=== PATIENT | female | born 1980 | race African-American/Black ===

== ENCOUNTER 2017-12-12 05:02 | Inpatient (IN) | payer OTHER ==
[2017-12-06 15:30] VITALS: BMI 36.3
[~2017-12-12 05:02] MED LIST: BUPIVACAINE HCL/PF (5 MG/ML) 30 ML VIAL IJ ONE; ceFAZolin 2 GRAM PREMIX BAG IVPB ONE
[2017-12-12] MEDS ORDERED: PROPOFOL 20 ML ONE (14:58)
[2017-12-12] MEDS ORDERED: DEXAMETHASONE SOD PHOSPHATE 4 MG/1 ML VIAL ONE (14:58)
[2017-12-12] MEDS ORDERED: fentaNYL CITRATE 250 MCG/5 ML VIAL ONE (14:58)
[2017-12-12] MEDS ORDERED: LIDOCAINE HCL/PF 2% SDV 5ML VIAL ONE (14:58)
[2017-12-12] MEDS ORDERED: ROCURONIUM BROMIDE 50 MG/5 ML VIAL ONE (14:58)
--- NOTE | 2017-12-12 15:47 | HP ---
Admitting History and Physical - Admission Chief Complaint: Morbid obesity History Source: Patient Limitations to Obtaining History: No Limitations - Past Medical History Pulmonary: Yes: Sleep Apnea ...LMP: 11/25/17 - Smoking History Smoking history: Former smoker Have you smoked in the past 12 months: No - Alcohol/Substance Use Hx Alcohol Use: Yes (SOCIALLY) Home Medications - Allergies Allergies/Adverse Reactions: Allergies Allergy/AdvReac Type Severity Reaction Status Date / Time No Known Drug Allergies Allergy Verified 12/06/17 15:24 - Home Medications Home Medications: Ambulatory Orders Famotidine [Pepcid] 20 mg PO BID #60 tablet 12/12/17 Oxycodone HCl/Acetaminophen [Percocet 5-325 mg Tablet] 1 - 2 tab PO Q6H #28 tab MDD 4 12/12/17 Family Disease History - Family Disease History Family History: Denies Review of Systems - Review of Systems Constitutional: denies: Chills, Fever HENT: reports: No Symptoms Neck: reports: No Symptoms Cardiovascular: reports: No Symptoms Respiratory: reports: No Symptoms Gastrointestinal: reports: No Symptoms Neurological: reports: No Symptoms Pain Intensity: 0 Physical Examination Vital Signs: Vital Signs Temperature 97.8 F 12/12/17 12:09 Pulse Rate 80 12/12/17 12:09 Respiratory Rate 18 12/12/17 12:09 Blood Pressure 139/92 12/12/17 12:09 O2 Sat by Pulse Oximetry (%) 100 12/12/17 12:25 Constitutional: Yes: Calm HENT: Yes: WNL Neck: Yes: WNL Cardiovascular: Yes: WNL Respiratory: Yes: Regular Gastrointestinal: Yes: Soft, Abdomen, Obese Neurological: Yes: Alert, Oriented Problem List - Problems (1) Morbid obesity due to excess calories Code(s): E66.01 - MORBID (SEVERE) OBESITY DUE TO EXCESS CALORIES Assessment/Plan Laparoscopic possible open vertical sleeve gastrectomy, possible liver biopsy, EGD
[2017-12-12] MEDS ORDERED: MIDAZOLAM HCL 2 MG/2 ML SINGLE DOSE VIAL ONE (16:12)
[2017-12-12] MEDS ORDERED: BUPIVACAINE HCL/PF (5 MG/ML) 30 ML VIAL IJ ONE (16:29)
[2017-12-12] MEDS ORDERED: ceFAZolin SODIUM 1 GM VIAL ONE (16:34)
[2017-12-12] MEDS ORDERED: LABETALOL HCL 5 MG/1 ML (100MG/20 ML VIAL) ONE (17:13)
[2017-12-12] MEDS ORDERED: PROMETHAZINE HCL 25 MG/1 ML VIAL IVPB PRN (17:34)
[2017-12-12] MEDS ORDERED: ONDANSETRON 4 MG/2 ML VIAL IVPUSH PRN (17:34)
[2017-12-12] MEDS ORDERED: LACTATED RINGERS SOLUTION 1,000 ML IV SCH (17:45)
[2017-12-12] MEDS ORDERED: morphine SULFATE 4 MG/ML VIAL IVPUSH PRN (17:54)
--- NOTE | 2017-12-12 17:57 | OP ---
Operative Note - Note: Operative Date: 12/12/17 Pre-Operative Diagnosis: morbid obesity, obstructive sleep apnea Operation: Laparoscopic vertical sleeve gastrectomy, wedge liver biopsy, EGD Post-Operative Diagnosis: Other (morbid obesity, obstructive sleep apnea, heaptomegaly) Surgeon: Jasper Casas Pharmacy Associate: Yady Staley Anesthesia: General Specimens Removed: Greater curvature of the stomach. Liver biopsy Estimated Blood Loss (mls): 30 Drains & Tubes with Location: 36 Fr bougie Operative Report Dictated: Yes
[2017-12-12] MEDS ORDERED: SODIUM CHLORIDE 1,000 ML IV SCH (18:00)
[2017-12-12] MEDS: ACETAMINOPHEN 1000 MG/100 ML VIAL (NON FORMULARY) IVPB SCH (18:00)
[2017-12-12] MEDS: METOCLOPRAMIDE HCL INJECTION 10 MG/2 ML VIAL IVPUSH SCH (18:00)
[2017-12-12] MEDS: ONDANSETRON 4 MG/2 ML VIAL IVPUSH SCH ×2 (18:00→21:16)
[2017-12-12] MEDS ORDERED: ceFAZolin 2 GRAM PREMIX BAG IVPB ONE (18:13)
--- NOTE | 2017-12-12 18:16 | SURG ---
Surgery Can Reforming Machine Operator Note Can Reforming Machine Operator: Yady Staley PA-C Date of Service: 12/12/17 Diagnosis: morbid obesity Procedure: laparoscopic sleeve gastrectomy I was present for the entirety of the operative procedure. For further detail, please refer to operative report. Visit type - Case Type Case Type: Scheduled - Emergency Emergency Visit: No - New patient This patient is new to me today: Yes Date on this admission: 12/12/17
[2017-12-12] MEDS ORDERED: ONDANSETRON 4 MG/2 ML VIAL ONE (18:19)
[2017-12-12] MEDS ORDERED: METOCLOPRAMIDE HCL INJECTION 10 MG/2 ML VIAL ONE (18:19)
[2017-12-12] MEDS ORDERED: hydrALAZINE HCL 20 MG/ML VIAL ONE (18:30)
[2017-12-12] MEDS: hydrALAZINE HCL 20 MG/ML VIAL IVPUSH ONE ×2 (18:40→20:38)
[2017-12-12 19:03] LABS: HEMOGLOBIN 12.5 GM/dL (10.7-15.3); MEAN CELL VOLUME 84.4 fl (80-96); MEAN PLT VOLUME 9.1 fl (7.5-11.1); PLATELET COUNT 295 K/MM3 (134-434); RBC 4.62 M/mm3 (3.60-5.2); RDW 14.2 % (11.6-15.6); WHITE BLOOD COUNT 17.1 K/mm3 (4.0-10.0)
--- NOTE | 2017-12-12 19:17 | SPEC ---
DATE OF OPERATION: 12/12/2017 SURGEON: Jasper Casas M.D. RECEIVING OPERATOR: Ruby Mott PREOPERATIVE DIAGNOSIS: 1. Morbid obesity. 2. Obstructive sleep apnea. 3. Body mass index of 36.3. POSTOPERATIVE DIAGNOSIS: 1. Morbid obesity. 2. Obstructive sleep apnea. 3. Body mass index of 36.3. 4. Hepatomegaly. PROCEDURES: 1. Laparoscopic vertical sleeve gastrectomy. 2. Laparoscopic wedge liver biopsy. 3. Esophagogastroduodenoscopy/upper endoscopy. SPECIMENS: 1. Greater curvature of the stomach. 2. Liver biopsy. ESTIMATED BLOOD LOSS: 30 mL. DRAINS: None. ANESTHESIA: GET BOUGIE SIZE: 36 [place] REASON FOR PROCEDURE: This is a 36-year-old female who presented for weight loss options. After describing different options, she decided to proceed with a laparoscopic, possible open vertical sleeve gastrectomy, possible liver biopsy and upper endoscopy. RISKS AND BENEFITS: After describing the different options for weight loss management, the patient decided to proceed with a laparoscopic, possible open vertical sleeve gastrectomy. The patient was seen by the respective subspecialties and cleared for surgery. The risks and benefits of the procedure were explained. These included bleeding, infection, hernia, DE, DVT, PE, injury to surrounding structures including the liver, colon, bowel, spleen, esophagus, vessel injury, nerve injury, weight regain, gastric leak, staple line leak, sleeve leak, obstruction, vitamin deficiency, hair loss and as some of the possible complications. The patient understood and signed informed consent. DESCRIPTION OF PROCEDURE: The patient was placed supine on the operating room table. The patient underwent general endotracheal intubation. The arms were brought out at 90 degrees and secured. A footboard was placed and the legs were secured laterally with padding. The abdomen was prepped and draped in the usual sterile fashion. A timeout was performed. An incision was made in the left upper quadrant and a Veress needle inserted. Pneumoperitoneum was established. Subsequently, the Veress needle was removed and a 5-mm trocar was placed under direct visualization with the laparoscope. The laparoscopic camera was then inserted and inspection of the abdominal cavity was performed. An incision was then made in the supraumbilical area and a 15-mm trocar was placed under direct visualization. A 5-mm trocar was then placed in the right upper quadrant and a 5-mm trocar was placed below the left subcostal margin. A stab wound was made in the subxiphoid area and a Fern clamp inserted and removed to dilate the tract. A Ayush liver retractor was inserted. The post was secured at the bedside by the nursing staff. The patient was placed in steep reverse Trendelenburg position and the Ayush liver retractor was used to secure the liver towards the anterior abdominal wall. The pylorus was identified and 6 cm proximal to it, the lesser sac was entered using the LigaSure device. All lateral attachments to the greater curvature of the stomach, including the short gastric vessels, were ligated using the LigaSure device toward the gastrosplenic and gastrophrenic ligaments. Once this was done in its entirety, it was confirmed that all tubes within the nasal or oropharyngeal cavity, including a temperature probe, was removed by Anesthesia. The bougie was then inserted by Anesthesia. Transection of the stomach was then begun staying adjacent to the bougie but away from the angularis. Transection of the stomach was performed near the portion of the stomach where the lesser sac was entered. Two laparoscopic Endo-LEXIE black rivas were used at this location. Laparoscopic Endo LEXIE purple staple loads were then used for the remainder of the transection until the greater curvature of the stomach was fully transected. This was done staying close to the bougie. Care was taken to stay away from the angle of His cephalad. The staple line was then inspected. Hemostasis was identified. A leak test was then performed. It was clamped distally to the staple line. Irrigation solution was placed in the left upper quadrant and air was insufflated by Anesthesia into the sleeve. No leaks were identified. No obstruction was identified. This was done through the entirety of the staple line. In addition, an upper endoscopy was performed. The endoscope was placed into the patients mouth and the entirety of the esophagus, GE junction, gastric pouch and staple line were inspected. No obstruction or leak was noted. The stomach was suctioned and the endoscope removed fully intact. At this point, the irrigation solution was suctioned and again, hemostasis was noted. A wedge liver biopsy was then performed. The left lobe of the liver was identified and a portion of the edge was grasped. Using electrocautery, a wedge of the liver was excised. This was removed and sent off the field as specimen. Hemostasis at the site of the wedge liver biopsy was attained using electrocautery. The 15-mm supraumbilical trocar was then removed and the greater curvature specimen removed from the site using a sponge stick wong. The specimen was inspected and a Veress needle inserted. The specimen insufflated adequately and no leak was identified. The staple line was noted to be intact. A Erwin-Yanni device was then used to close the fascia with a 0 Vicryl suture at the site. Again, hemostasis was noted. The Ayush liver retractor was then removed under direct visualization. Pneumoperitoneum was desufflated and the fascial sutures were secured. Hemostasis was noted at all incision sites and Marcaine was injected at all incision sites. All incision sites were closed using 4-0 Biosyn. Sterile dressings were applied. The patient tolerated the procedure well and was transferred to the recovery room in stable condition. The patient was transferred to telemetry for further monitoring. Lakesha [id number]
[2017-12-12 19:49] LABS: ALBUMIN 3.5 g/dl (3.4-5.0); ALK PHOS 106 U/L (45-117); ANION GAP 9 MMOL/L (8-16); BILIRUBIN,TOTAL 0.4 mg/dL (0.2-1); BLOOD UREA NITROGEN 10 mg/dL (7-18); CALCIUM 8.1 mg/dL (8.5-10.1); CHLORIDE 107 mmol/L (98-107); CO2 24 mmol/L (21-32); CREATININE 0.9 mg/dL (0.55-1.3); GLUCOSE,RANDOM 120 mg/dL (74-106); POTASSIUM 4.2 mmol/L (3.5-5.1); SGOT/AST 25 U/L (15-37); SGPT/ALT 25 U/L (13-61); SODIUM 140 mmol/L (136-145); TOT PROT 7.6 g/dl (6.4-8.2)
[2017-12-12] MEDS: ENOXAPARIN NA (PORCINE) 40 MG/0.4 ML DISP.SYRIN SQ SCH (21:16)
[2017-12-12] MEDS: FAMOTIDINE 20 MG/50 ML IVPB 20 MG/50 ML MG IVPB SCH (21:16)
[2017-12-12] MEDS ORDERED: DEXAMETHASONE SOD PHOSPHATE 10 MG/1 ML VIAL ONE (22:11)
[2017-12-12] MEDS ORDERED: DEXAMETHASONE SOD PHOSPHATE 4 MG/1 ML VIAL IVPB ONE (22:30)
[2017-12-13] MEDS: METOCLOPRAMIDE HCL INJECTION 10 MG/2 ML VIAL IVPUSH SCH ×4 (00:10→18:08)
[2017-12-13] MEDS: ACETAMINOPHEN 1000 MG/100 ML VIAL (NON FORMULARY) IVPB SCH ×3 (00:10→11:19)
[2017-12-13] MEDS: ONDANSETRON 4 MG/2 ML VIAL IVPUSH SCH ×6 (01:28→21:23)
[2017-12-13 06:53] LABS: HEMATOCRIT 39.8 % (32.4-45.2); HEMOGLOBIN 12.8 GM/dL (10.7-15.3); MCH 26.8 pg (25.7-33.7); MCHC 32.2 g/dl (32.0-36.0); MEAN CELL VOLUME 83.1 fl (80-96); MEAN PLT VOLUME 9.2 fl (7.5-11.1); PLATELET COUNT 307 K/MM3 (134-434); RBC 4.79 M/mm3 (3.60-5.2); RDW 14.6 % (11.6-15.6); WHITE BLOOD COUNT 12.5 K/mm3 (4.0-10.0)
--- NOTE | 2017-12-13 07:26 | SURG ---
Surgery Logger All Round Note Logger All Round: Yady Staley PA-C Date of Service: 12/12/17 Diagnosis: morbid obesity, obstructive sleep apnea Procedure: Laparoscopic vertical sleeve gastrectomy, wedge liver biopsy, EGD I was present for the entirety of the operative procedure. For further detail, please refer to operative report. Visit type - Case Type Case Type: Scheduled - Emergency Emergency Visit: No - New patient This patient is new to me today: Yes Date on this admission: 12/13/17
[2017-12-13 07:34] LABS: ALBUMIN 3.4 g/dl (3.4-5.0); ALK PHOS 101 U/L (45-117); ANION GAP 10 MMOL/L (8-16); BILIRUBIN,TOTAL 0.4 mg/dL (0.2-1); BLOOD UREA NITROGEN 8 mg/dL (7-18); CALCIUM 8.1 mg/dL (8.5-10.1); CHLORIDE 103 mmol/L (98-107); CO2 21 mmol/L (21-32); CREATININE 0.8 mg/dL (0.55-1.3); GLUCOSE,RANDOM 138 mg/dL (74-106); POTASSIUM 4.4 mmol/L (3.5-5.1); SGOT/AST 29 U/L (15-37); SGPT/ALT 26 U/L (13-61); SODIUM 134 mmol/L (136-145); TOT PROT 7.6 g/dl (6.4-8.2)
--- NOTE | 2017-12-13 08:36 | PN ---
Progress Note (short form) - Note Progress Note: 36yo F s/p gastric sleeve POD 1. Pt seen and examined at bedside. According to nursing pt had episode of some increased oral secretions and pharyngeal swelling. Pt was seen by Dr. Mulligan who ordered her a dose of decadron. Pt denies any pharyngeal swelling or discomfort at this point. Denies dysphagia or dyspnea. Pt ambulating and urinating well. Denies fever, chills, n/v. Last Vital Signs Temp Pulse Resp BP Pulse Ox 99.4 F 18 L 108 H 145/92 98 12/13/17 06:00 12/13/17 06:00 12/13/17 06:00 12/13/17 06:00 12/12/17 22:00 CBC, BMP 12/13/17 06:20 12/13/17 06:20 PE: Gen: A&O x3 Resp: breathing comfortably Abd: soft, nondistended, mild tenderness, incisions are clean with no erythema or discharge. Ext: no edema <Josh Carpenter - Last Filed: 12/13/17 08:30> - Note Progress Note: POD 1 No nausea Pain controlled AVSS Abd soft UGI: no leak/obstruction Clears Discharge home <Jasper Casas - Last Filed: 12/13/17 12:36> Problem List - Problems (1) Morbid obesity due to excess calories Assessment/Plan: Plan -Will get upper GI this AM, if ok will advance diet to bariatric stage 1 -pain management -incentive spirometry -DVT ppx -will consider discharge home this PM if patient doing well and tolerating diet. Code(s): E66.01 - MORBID (SEVERE) OBESITY DUE TO EXCESS CALORIES <Josh Carpenter - Last Filed: 12/13/17 08:30> - Problems (1) Morbid obesity due to excess calories Code(s): E66.01 - MORBID (SEVERE) OBESITY DUE TO EXCESS CALORIES <Jasper Casas - Last Filed: 12/13/17 12:36>
[2017-12-13] MEDS ORDERED: oxyCODONE HCL 5 MG TABLET PO PRN (10:13)
[2017-12-13] MEDS ORDERED: SODIUM CHLORIDE 1,000 ML IV SCH ×2 (10:15→19:00)
[2017-12-13] MEDS: ENOXAPARIN NA (PORCINE) 40 MG/0.4 ML DISP.SYRIN SQ SCH ×2 (10:57→21:22)
[2017-12-13] MEDS: FAMOTIDINE 20 MG/50 ML IVPB 20 MG/50 ML MG IVPB SCH ×2 (10:57→21:23)
--- NOTE | 2017-12-13 11:34 | PN ---
Progress Note (short form) - Note Progress Note: Anesthesia POD#1 S/P Gastric Sleeve under GA VSS,no N/V,however,neck and throat swelling is going down. Intra/op rash were noted Benedryl was given. Last night tongue and throat were swollen and Dr Mulligan gave Decadron 8 mg,since then she is improving. Elin Torres MD.
[2017-12-14] MEDS: ONDANSETRON 4 MG/2 ML VIAL IVPUSH SCH ×3 (02:00→09:06)
[2017-12-14] MEDS: METOCLOPRAMIDE HCL INJECTION 10 MG/2 ML VIAL IVPUSH SCH ×2 (05:37)
[2017-12-14 06:30] VITALS: TEMP 98.2
[2017-12-14] MEDS: ENOXAPARIN NA (PORCINE) 40 MG/0.4 ML DISP.SYRIN SQ SCH (09:06)
[2017-12-14] MEDS: FAMOTIDINE 20 MG/50 ML IVPB 20 MG/50 ML MG IVPB SCH (09:06)
[2017-12-14 09:12] VITALS: BP 150/94; PULSE 87
--- NOTE | 2017-12-14 16:22 | PATH ---
Surgical Pathology Report Patient Name: BECCA FAUST [facility]. Rec. #: [id number] /Age/Gender: 1980 (Age: 36) / F Account: [id number] Location: 4 SO PEDS/ADOL Taken: 12/12/2017 Received: 12/13/2017 Reported: 12/14/2017 Physicians: Jasper Casas M.D. Specimen(s) Received A: GREATER CURVATURE STOMACH B: LIVER BIOPSY Clinical History Morbid obesity Final Diagnosis A. GREATER CURVATURE STOMACH, LAPAROSCOPIC VERTICAL SLEEVE GASTRECTOMY: SEGMENT OF STOMACH SHOWING ACTIVE CHRONIC GASTRITIS. IMMUNOSTAINING IS POSITIVE FOR H. PYLORI ORGANISMS. NEGATIVE FOR INTESTINAL METAPLASIA. B. LIVER, BIOPSY: LIVER TISSUE WITH MILD STEATOSIS (<5%). FOCAL PORTAL TRACTS SHOW A MIXED INFLAMMATORY INFILTRATE COMPRISED OF MAINLY LYMPHOCYTES WITH FEW SCATTERED PLASMA CELLS AND EOSINOPHILS. RETICULUM STAIN SHOWS AN INTACT SINUSOIDAL ARCHITECTURE. PAS WITH DIASTASE STAIN IS NEGATIVE FOR [id number] GLOBULES. NO INCREASE IN FIBROSIS (TRICHROME STAIN) OR IRON (IRON STAIN) DEPOSITION. NEGATIVE FOR CHOLESTASIS, GRANULOMAS, OR MALIGNANCY. Comment: Subcapsular liver tissue with thermal artifact. Electronically Signed Seth Youngblood M.D. Gross Description A. Received in formalin, labeled "greater curvature of stomach," is a 128 gram aggregate of 2 matute portions of stomach measuring 19.5 x 3.5 x 2.3 cm and 3.5 x 2.0 x 1.5 cm. The specimens display stapled margins of resection. The serosa is matute-jackson with minimal attached fat. The mucosa is matute-pink with normal folds. No mucosal masses are identified. Radio Engineer sections are submitted in one cassette. B. Received in formalin labeled "liver biopsy," is a 2.5 x 1.5 x 0.6 cm portion of matute soft tissue, consistent with liver. The specimen is sectioned and registered representative sections are submitted in one cassette. DL/12/13/2017 saudi12/13/2017
== END 2017-12-14 10:25 | disposition home or self-care (01) | DRG 403 ==
LOC: JSAMEDAYSX 05:02 → EDSTATUS 14:00 → J4S 19:59
PROVIDERS: ADMIT Surgery; ATTEND Surgery
PROC: 0DB64Z3 Excision of Stomach, Percutaneous Endoscopic Approach, Vertical (ICD-10-PCS; principal; 2017-12-12 14:30)
PROC: 0FB24ZX Excision of Left Lobe Liver, Percutaneous Endoscopic Approach, Diagnostic (ICD-10-PCS; 2017-12-12 14:30)
PROC: 0DJ08ZZ Inspection of Upper Intestinal Tract, Via Natural or Artificial Opening Endoscopic (ICD-10-PCS; 2017-12-12 14:30)
DX: E66.01 Morbid (severe) obesity due to excess calories (principal); Z68.36 Body mass index [BMI] 36.0-36.9, adult; G47.33 Obstructive sleep apnea (adult) (pediatric); R16.0 Hepatomegaly, not elsewhere classified
CPT/HCPCS: 36415; 74241-TC-FY; 80053; 84703; 85027; 86850; 86900; 86901; 88305-TC; 94760; J0131; J1100; J7030